=== PATIENT | male | born 1945 | race Caucasian/White ===

== ENCOUNTER 2016-11-12 02:26 | Emergency (ER) | payer MEDICARE, BC ==
[~2016-11-12 02:26] MED LIST: ATENOLOL25 M1 PO; BACTRIM DS TAB1 EAC2 PO; COUMADIN3 M1 PO; GLIPIZIDE10 M2 PO; GLIPIZIDE5 M2 PO; ZOCOR20 M1 PO
[2016-11-12 03:00] LABS: BASO % 0.3 % (0-2); CARBON DIOXIDE-VENOUS 29 mmol/L (21-33); CREATININE 0.95 mg/dl (0.67-1.17); EOS % 2.8 % (0-7); EOSINOPHIL ABSOLUTE COUNT 0.2 tho/cmm (0.0-0.7); GLUCOSE 164 mg/dl (65-120); HGB-HEMOGLOBIN 12.7 gm/dl (13.5-17.0); IMMATURE GRANULOCYTES ABSOLUTE 0.02 tho/cmm (0-0.03); IMMATURE GRANULOCYTES PERCENT 0.3 % (0-0.3); LYMPH % 13.8 % (20-45); LYMPH ABSOLUTE COUNT 1.1 tho/cmm (0.8-4.5); MCH (MEAN CORPUSCULAR HGB) 29.7 pg (28.0-32.0); MCHC MEAN CORPUSCULAR HGB CONC 34.3 % (32.0-36.0); MCV (MEAN CELL VOLUME) 86.7 fl (82.0-96.0); MEAN PLATELET VOLUME 9.6 cmc (9.4-12.4); MONO % 5.3 % (0-12); MONOCYTE ABSOLUTE COUNT 0.4 tho/cmm (0.0-1.2); NEUTROPHIL ABSOLUTE COUNT 5.9 tho/cmm (1.6-8.0); NEUTROPHIL-AUTOMATED 5.9 tho/cmm (1.6-8.0); NEUTROPHILS % 77.5 % (40-80); PLATELET COUNT 157 tho/cmm (150-450); RED BLOOD COUNT 4.27 mil/cmm (4.40-5.70); RED CELL DISTRIBUTION WIDTH 13.6 % (12.4-16.4); SODIUM 136 mmol/L (135-146); WHITE BLOOD COUNT 7.6 tho/cmm (4.0-10.0); eGFR VALUE FOR BLACK >90 mL/Min
[2016-11-12 03:15] LABS: INR 2.3 INR (0.9-1.1); PROTHROMBIN TIME 27.1 SECONDS (9.0-13.6)
[2016-11-12 03:17] LABS: ESR-ERYTHROCYTE SED RATE 23 mm/hr (0-20)
[2016-11-12 03:23] LABS: ALBUMIN 3.5 g/dl (3.5-5.0); ALKALINE PHOSPHATASE 86 U/L (33-138); ALT/SGPT 33 U/L (12-78); AST/SGOT 23 U/L (10-40); BILIRUBIN,TOTAL 0.8 mg/dl (0.0-1.5); BLOOD UREA NITROGEN 14 mg/dl (6-24); CHLORIDE 105 mmol/l (96-110)
[2016-11-12 03:24] LABS: ANION GAP 11 mmol/L (0-20)
[2016-11-12 03:27] LABS: TSH-THYROID STIMULATING HORM. 1.78 uIU/ml (0.40-3.80)
[2016-11-12 03:48] LABS: MAGNESIUM 2.2 mg/dl (1.8-2.6)
== END 2016-11-12 03:15 | disposition other institution (70) ==
LOC: EDMED 02:26
PROVIDERS: Emergency Medicine
DX: S06.5X0A Traumatic subdural hemorrhage without loss of consciousness, initial encounter (principal); Z79.01 Long term (current) use of anticoagulants; W19.XXXA Unspecified fall, initial encounter; E11.8 Type 2 diabetes mellitus with unspecified complications